=== PATIENT | female | born 1945 | race Caucasian/White ===

== ENCOUNTER 2017-10-10 10:24 | Emergency (ER) | payer OTHER, MEDICAID ==
[2017-10-10 10:29] VITALS: BP 114/64; BMI 28.3
--- NOTE | 2017-10-10 11:50 | DR.EXTPAIN ---
HPI - Time seen Time seen: 11:50 - PCP Primary Care Physician: TIGRE - HPI Comment HPI Comment: PERSISTENT PAIN LEFT FOOT. - Complaint/Symptoms Chief Complaint Doctor Comments: INJURY LEFT FOOT TIMES ONE WEEK. Chief Complaint:: PT. FELL AND TWISTED HER LEFT FOOT ABOUT A WEEK AGO. PT. C/O PAIN TO 5TH DIGIT ON LEFT FOOT AND TO THE TOP OF HER LEFT FOOT. - Nurses notes reviewed Nurses Notes Review: Yes - Source History Provided: Patient - Mode of arrival Mode of Arrival: Ambulatory - Timing Onset of Chief Complaint: 10/03/17 - Context History of: None - Associated signs and symptoms Associated Signs and Symptoms: Pain, Swelling, Bruising PMH - PMH Past Medical History: Yes Past Medical History: Headaches, Hypertension, Hypothyroidism Past Surgical History: Yes Surgical History: Cholecystectomy, Hysterectomy, Joint Replacement - Family History History of Family Medical Conditions: Yes Family Medical History: Diabetes Mellitus, Heart Failure - Social History Does patient currently use any type of tobacco product: No Have you used tobacco products in the last 12 months: No Type of Tobacco Use: None Does any household member use tobacco: No Alcohol Use: None Do you use any recreational Drugs:: No Lives With: Alone Lives Where: Home - infectious screening In the last 2 months have you had wt loss of >10#?: NO Have you had fever, night sweats or hemotysis?: No Have you traveled outside the country in the last 6 months?: No Isolation: Standard ROS - Review of Systems Constitutional: No Symptoms Reported Eyes: No Symptoms Reported ENTM: No Symptoms Reported Respiratoy: No Symptoms Reported Cardiovascular: No Symptoms Reported Gastrointestinal/Abdominal: No Symptoms Reported Genitourinary: No Symptoms Reported Neurological: No Symptoms Reported Musculoskeletal: Left, Foot Integumentary: No Symptoms Reported Hematologic/Lymphatic: No Symptoms Reported Endocrine: No Symptoms Reported All Other Systems: Reviewed and Negative PE - Vital Signs Vitals: Temperature 98.2 F Pulse Rate 95 Respiratory Rate 22 Blood Pressure 114/64 O2 Sat by Pulse Oximetry 97 - General Limitations: No Limitations General Appearance: Alert - Head Head Exam: Normal Inspection - Eyes Eye exam: Normal Appearance - ENT ENT Exam: Normal External Ear Exam - Neck Neck Exam: Trachea Midline - Chest Chest Inspection: Symmetric Chest Wall Rise - Respiratory Respiratory Exam: Normal Lung Sounds Bilat - Cardiovascular Cardiovascular Exam: Regular Rate, Normal Rhythm, Normal Heart Sounds - Extremities Extremities Exam: Tenderness (LT FOOT SWOLLEN LATERAL ASPECT AND TENDER.ROM WITH PAIN.) - Neurological Neurological Exam: Alert, Oriented X3 - Psychiatric Psychiatric Exam: Normal Affect, Normal Mood - Skin Skin Exam: Erythema MDM - Differential Diagnosis Differential Diagnosis: Contusion, Fracture, Sprain Course - Treatment Treatment: SEE ORDER. - Education/Counseling Education/Counseling: Patient, Education Educated On: Diagnosis, Needs for Follow Up ROR - XRAY XRAY Interpreted by: Radiologist XRAY Findings: REPORT DISCUSS WITH PATIENT. - Diagnosis Discharge Problem: Fracture of metatarsal bone of left foot Qualifiers: Encounter type: initial encounter Metatarsal bone: fifth Fracture type: closed Fracture alignment: nondisplaced Qualified Code(s): S92.355A - Nondisplaced fracture of fifth metatarsal bone, left foot, initial encounter for closed fracture - Discharge Plan Disposition: 01 HOME, SELF-CARE Condition: Stable Prescriptions: Acetaminophen with Codeine [Tylenol with Codeine #3 Tablet] 1 each PO Q12H PRN # 12 tablet PRN Reason: Ibuprofen [MOTRIN TAB 600 MG *] 600 mg PO BID PRN #20 tab PRN Reason: Pain/Inflammation - Follow ups/Referrals Follow ups/Referrals: Charlie Rao [Primary Care Provider] - 3 days RACHEL OSCAR [CONSULTING PHYSICIAN] - 3 days - Instructions Instructions: Metatarsal Fracture With Rehab-SportsMed Additional Instructions: RETURN TO ED IF WORSE.
--- NOTE | 2017-10-10 12:02 | RAD ---
Examination: Left foot, three views History: Recent fall Findings: There is an oblique fracture involving the distal 2/3 of the left 5th metatarsal. There is no significant displacement or deformity. There is slight widening of the fracture line. Joint spaces are not involved. The expected soft tissue swelling is present. Impression: Minimally deforming fracture of left 5th metatarsal. Reported By:
== END 2017-10-10 12:37 | disposition home or self-care (01) ==
LOC: ER 10:33
DX: S92.355A Nondisplaced fracture of fifth metatarsal bone, left foot, initial encounter for closed fracture (principal); W19.XXXA Unspecified fall, initial encounter; Y92.9 Unspecified place or not applicable
CPT/HCPCS: 73630; 99282

== ENCOUNTER → 2017-11-07 | Outpatient (CLI) | payer OTHER, MEDICAID ==
[2017-10-10 10:29] VITALS: BP 114/64
--- NOTE | 2017-11-07 11:20 | RAD ---
Examination: Left foot, three views History: Fracture Comparison reference 10/10/2017 Findings: There is a small amount of periosteal new bone and callus suggested. There is no change in position or alignment or deformity. No additional abnormality is noted compared to the original study . Impression: Healing left 5th metatarsal fracture. Reported By:
== END ==
LOC: RAD 10:45
PROVIDERS: ATTEND Specialist
DX: S92.355D Nondisplaced fracture of fifth metatarsal bone, left foot, subsequent encounter for fracture with routine healing (principal); X58.XXXD Exposure to other specified factors, subsequent encounter
CPT/HCPCS: 73630

== ENCOUNTER 2017-11-28 09:48 | Emergency (ER) | payer OTHER, MEDICAID ==
[2017-11-28 09:53] VITALS: BP 111/65; BMI 28.3
--- NOTE | 2017-11-28 10:29 | DR.GENAD ---
HPI - PCP Primary Care Physician: TIGRE - Complaint/Symptoms Chief Complaint:: PATIENT FELL ABOUT A MONTH AGO AND HURT HER LEFT FOOT. THE LEFT FOOT HAS HEALED NOW AND ALL OF A SUDDON LAST NIGHT HER RIGHT FOOT STARTED HURTING. - Source History Provided: Patient - Mode of Arrival Mode of Arrival: Ambulatory - Timing Onset of Chief Complaint: 10/26/17 PMH - PMH Past Medical History: Yes Past Medical History: Headaches, Hypertension, Hypothyroidism Past Surgical History: Yes Surgical History: Cholecystectomy, Hysterectomy, Joint Replacement - Family History History of Family Medical Conditions: Yes Family Medical History: Diabetes Mellitus, Heart Failure - Social History Does patient currently use any type of tobacco product: No Have you used tobacco products in the last 12 months: No Type of Tobacco Use: None Does any household member use tobacco: No Alcohol Use: None Do you use any recreational Drugs:: No Lives With: Family Lives Where: Home - infectious screening In the last 2 months have you had wt loss of >10#?: NO Have you had fever, night sweats or hemotysis?: No Have you traveled outside the country in the last 6 months?: No Isolation: Standard PE - Vital Signs Vitals: Temperature 98.3 F Pulse Rate 91 Respiratory Rate 16 Blood Pressure 111/65 O2 Sat by Pulse Oximetry 99 ROR - Labs Reviewed Laboratory: Uric Acid 7.8 mg/dL (2.6-6.0) H 11/28/17 11:03 - Diagnosis Discharge Problem: Tendinitis, Hyperuricemia - Discharge Plan Disposition: 01 HOME, SELF-CARE Condition: Stable Prescriptions: Ibuprofen [MOTRIN TAB 600 MG *] 600 mg PO TID PRN #30 tab PRN Reason: Pain/Inflammation - Follow ups/Referrals Follow ups/Referrals: Charlie Rao [Primary Care Provider] - 3 days - Instructions Instructions: Tendinitis and Tenosynovitis-SportsMed, Uric Acid Test Additional Instructions: RETURN TO ED IF WORSE.
--- NOTE | 2017-11-28 10:30 | DR.GENAD ---
HPI - PCP Primary Care Physician: TIGRE - HPI Comment HPI Comment: RIGHT FOOT PAIN SINCE LAST NIGHT. NO TRAUMA. SIMILAR PAIN LT FOOT PREVIOUSLY WHICH HAVE IMPROVE. - Complaint/Symptoms Chief Complaint Doctors Comments: RIGHT FOOT PAIN. Chief Complaint:: PATIENT FELL ABOUT A MONTH AGO AND HURT HER LEFT FOOT. THE LEFT FOOT HAS HEALED NOW AND ALL OF A SUDDON LAST NIGHT HER RIGHT FOOT STARTED HURTING. - Nurses notes reviewed Nurses Notes Review: Yes - Source History Provided: Patient - Mode of Arrival Mode of Arrival: Ambulatory - Timing Onset of Chief Complaint: 10/26/17 Came on: Suddenly - Duration Duration: Constant Duration: Hours - Severity Severity: Moderate PMH - PMH Past Medical History: Yes Past Medical History: Headaches, Hypertension, Hypothyroidism Past Surgical History: Yes Surgical History: Cholecystectomy, Hysterectomy, Joint Replacement - Family History History of Family Medical Conditions: Yes Family Medical History: Diabetes Mellitus, Heart Failure - Social History Does patient currently use any type of tobacco product: No Have you used tobacco products in the last 12 months: No Type of Tobacco Use: None Does any household member use tobacco: No Alcohol Use: None Do you use any recreational Drugs:: No Lives With: Family Lives Where: Home - infectious screening In the last 2 months have you had wt loss of >10#?: NO Have you had fever, night sweats or hemotysis?: No Have you traveled outside the country in the last 6 months?: No Isolation: Standard ROS - Review of Systems Constitutional: No Symptoms Reported Eyes: No Symptoms Reported ENTM: No Symptoms Reported Respiratoy: No Symptoms Reported Cardiovascular: No Symptoms Reported Gastrointestinal/Abdominal: No Symptoms Reported Genitourinary: No Symptoms Reported Neurological: No Symptoms Reported Musculoskeletal: Right, Foot Integumentary: No Symptoms Reported Hematologic/Lymphatic: No Symptoms Reported Endocrine: No Symptoms Reported All Other Systems: Reviewed and Negative PE - Vital Signs Vitals: Temperature 98.3 F Pulse Rate 91 Respiratory Rate 16 Blood Pressure 111/65 O2 Sat by Pulse Oximetry 99 - General Limitations: No Limitations General Appearance: Alert - Head Head Exam: Normal Inspection - Eyes Eye exam: Normal Appearance - ENT ENT Exam: Normal External Ear Exam External Ear Exam: Normal External Inspection TM/Canal Exam: Bilateral Normal Nose Exam: Normal Nose Exam Mouth Exam: Normal Inspection Throat Exam: Normal Inspection - Neck Neck Exam: Normal Inspection - Chest Chest Inspection: Symmetric Chest Wall Rise - Respiratory Respiratory Exam: Normal Lung Sounds Bilat Respiratory Exam: Bilateral Clear to Auscultation - Cardiovascular Cardiovascular Exam: Regular Rate, Normal Rhythm, Normal Heart Sounds - Abdominal Exam Abdominal Exam: Normal Inspection - Extremities Extremities Exam: Tenderness (RIGHT MID FOOT AND ACHE OF RT FOOT TENDERNESS. NADIA.) - Back Back Exam: Normal Inspection - Neurologic Neurological Exam: Alert, Oriented X3 - Psychiatric Psychiatric Exam: Normal Affect, Normal Mood - Skin Skin Exam: Normal Color MDM - Differential Diagnosis Differential Diagnosis: RT FOOT PAIN, TENDINITIS, FRACTURE, CONTUSION, SPRAIN Course - Treatment Treatment: SEE ORDERS - Education/Counseling Education/Counseling: Patient, Education Educated On: Diagnosis, Needs for Follow Up ROR - Labs Reviewed Laboratory: Uric Acid 7.8 mg/dL (2.6-6.0) H 11/28/17 11:03 - XRAY XRAY Interpreted by: Radiologist XRAY Findings: REPORT DISCUSS WITH PATIENT. - Diagnosis Discharge Problem: Tendinitis, Hyperuricemia - Discharge Plan Disposition: 01 HOME, SELF-CARE Condition: Stable Prescriptions: Ibuprofen [MOTRIN TAB 600 MG *] 600 mg PO TID PRN #30 tab PRN Reason: Pain/Inflammation - Follow ups/Referrals Follow ups/Referrals: Charlie Rao [Primary Care Provider] - 3 days - Instructions Instructions: Tendinitis and Tenosynovitis-SportsMed, Uric Acid Test Additional Instructions: RETURN TO ED IF WORSE.
--- NOTE | 2017-11-28 10:59 | RAD ---
HISTORY: Status post fall. Pain in the right foot. Study: Right foot: Three views Comparison: None Findings: Mild metatarsus varus is noted. [id number] degenerative changes noted in the 1st metatarsal-ph alangeal joint. Mild joint space narrowing is present in several interphalangeal joints. Minimal de generative changes noted in the 1st tarsal metatarsal joint. The base of the 5th metatarsal is intac t. Mild degenerative change present in the midfoot. A small to moderate size calcaneal spur is pres ent. IMPRESSION: 1. Degenerative change in the right foot as described above. 2. No acute bony abnormalities are identified. Reported By:
[2017-11-28] MEDS ORDERED: TORADOL 60 MG VIAL IM ONE (11:32)
[2017-11-28] MEDS ORDERED: TORADOL 60 MG VIAL ONE (11:33)
== END 2017-11-28 12:07 | disposition home or self-care (01) ==
LOC: ER 10:11
DX: M77.9 Enthesopathy, unspecified (principal); E79.0 Hyperuricemia without signs of inflammatory arthritis and tophaceous disease; W19.XXXA Unspecified fall, initial encounter; Y92.9 Unspecified place or not applicable
CPT/HCPCS: 36415; 73630; 84550; 96372; 99282; J1885

== ENCOUNTER → 2018-03-26 | Outpatient (CLI) | payer MEDICAID, OTHER ==
[2018-03-26 09:03] LABS: CREATININE 1.41 mg/dL (0.55-1.02)
--- NOTE | 2018-03-26 10:24 | CT ---
HISTORY: shortness of breath for 2 months Study: CT chest without contrast Comparison: None Technique: Multiple axial images of the chest were obtained from the thoracic inlet to the upper abdo men without IV contrast. Dose reduction techniques including Automated Exposure Control (AEC) and ad justment of mA and kV were utilized. Findings: Please note evaluation is limited without IV contrast. Vessel patency not assessed. Normal appearance of the heart and pericardium. The aorta appears normal in course and caliber. The lungs are clear. N o pneumothorax or infiltrate identified. There is a trace left pleural fluid. Airways are patent. The re is a moderate-sized hiatal hernia noted. Multilevel spondylosis with increased kyphosis of the thoracic spine is present. No acute osseous abn ormality identified. There is a partially visualized left shoulder prosthesis. The gallbladder is rem aure. IMPRESSION: 1. Trace left pleural fluid. Lungs are clear without infiltrate. 2. Moderate-sized hiatal hernia. Reported By:
== END ==
LOC: RAD 08:25
PROVIDERS: ATTEND Internal Medicine
DX: I20.8 Other forms of angina pectoris (principal); R06.02 Shortness of breath
CPT/HCPCS: 36415; 71250; 82565; 84520

== ENCOUNTER → 2018-03-28 | Outpatient (CLI) | payer OTHER, MEDICAID ==
--- NOTE | 2018-03-29 10:53 | MG ---
HISTORY: SCREENING Comparison: Previous mammogram dated 05/17/2016 FINDINGS: Bilateral CC and MLO projections of the right and left breast were obtained. Scattered fibroglandula r tissue is seen to be present. No significant architectural distortion, mass or clustered microcalc ifications can be observed to suggest malignancy. No skin thickening or nipple retraction is appreci ated. No pathological lymphadenopathy can be identified. IMPRESSION: NO RADIOGRAPHIC EVIDENCE OF MALIGNANCY. ACR CATEGORY: 1 - NEGATIVE EXAM. FOLLOW-UP EXAM 1 YEAR. Diagnostic CAD was utilized and reviewed. * 0 (ZERO) - ASSESSMENT INCOMPLETE; ADDITIONAL IMAGING IS NEEDED. * / (ONE) - NEGATIVE. * 2/II (TWO) - BENIGN FINDINGS. * 3/III (THREE) - PROBABLY BENIGN FINDING; SHORT INTERVAL FOLLOW-UP SUGGESTED. * 4/IV (FOUR) - SUSPICIOUS ABNORMALITY; BIOPSY SHOULD BE CONSIDERED. * 5/V - HIGHLY SUSPICIOUS OF MALIGNANCY; BIOPSY SHOULD BE PERFORMED. A NEGATIVE X-RAY REPORT SHOULD NOT DELAY BIOPSY IF A DOMINANT OR CLINICALLY SUSPICIOUS MASS IS PRESENT; 4 TO 8 PERCENT OF CANCERS ARE NOT IDENTIFIED BY X-RAY. A NEGA TIVE REPORT MAY REINFORCE THE CLINICAL IMPRESSION. ADENOSIS AND DENSE BREASTS MAY OBSCURE AN UNDERLY ING NEOPLASM. Reported By:
== END ==
LOC: RAD 10:44
PROVIDERS: ATTEND Internal Medicine
DX: Z12.31 Encounter for screening mammogram for malignant neoplasm of breast (principal)
CPT/HCPCS: 77067